=== PATIENT | male | born 1960 | race Caucasian/White ===

== ENCOUNTER 2016-07-22 08:39 | Emergency (ER) | payer OTHER ==
[~2016-07-22] VITALS: Ht 172.7 cm; Wt 87.5 kg
--- NOTE | 2016-07-22 08:52 | ED GI/GU/ABDOMINAL COMPLAINT ---
History of Present Illness General Chief Complaint: Abdominal Pain/Flank Pain Stated Complaint: LOWER LT ABDOMINAL PAIN X 3 DAYS Source: patient Exam Limitations: no limitations Vital Signs & Intake/Output Vital Signs & Intake/Output Vital Signs Date Time Temp Pulse Resp B/P B/P Pulse O2 O2 Flow FiO2 Mean Ox Delivery Rate 07/22 0844 99.0 90 18 168/88 98 Room Air Allergies Coded Allergies: No Known Allergies (07/22/16) Reconcile Medications Alprazolam (Xanax) 0.25 MG TABLET 1 TAB PO BIDP PRN sleep (Reported) Amlodipine Besylate/Benazepril (Amlodipine-Benazepril 5-20 MG) 5 MG-20 MG CAPSULE 1 CAP PO DAILY HEART (Reported) Naproxen 500 MG TABLET 1 TAB PO BID PRN PAIN TAKE WITH FOOD Triage Note: 55 YEAR OLD MALE STATES THAT HE HAS BEEN HAVING L SIDE ABD PAIN, CRAMPING IN NATURE THAT HAS BEEN CONSTANT SINCE FRIDAY , PAIN IS NON RADIATING AND INCREASING IN INTENSITY. DENIES N/V/D AND HAS BEEN HAVING NORMAL BOWEL MOVEMENT AND LAST TIME WENT WAS THIS AM. APPETITE GOOD, DENIES URINARY SYMPTOMS.STATES THAT HIS ABDOMEN IS DISTENDED Triage Nurses Notes Reviewed? yes Onset: Abrupt Duration: day(s): (4) Timing: multiple episodes today Quality/Severity: mild, moderate, sharpness Location: left lower quadrant Radiation: no radiation Activities at Onset: none No Modifying Factors: none Associated Symptoms: ABDOMINAL BLOATING HPI: This is a 55-year-old male presents to the chief complaint of left lower quadrant pain since Friday. Denies any fever or chills but has a low-grade temp 99. Denies any nausea or vomiting. Complains of some abdominal distention. Pain is left flank but does not really. Denies any urinary symptoms. No history of similar symptoms in the past before. Denies any trauma. Past History Travel History Traveled to [place] past 21 day No Medical History Any Pertinent Medical History? see below for history Neurological: NONE EENT: NONE Cardiovascular: hypertension Respiratory: NONE Gastrointestinal: NONE Hepatic: NONE Renal: NONE Musculoskeletal: NONE Psychiatric: anxiety Endocrine: NONE Blood Disorders: NONE Cancer(s): NONE MEDICAL IMAGING DIRECTOR/Reproductive: NONE Surgical History Surgical History: non-contributory Psychosocial History What is your primary language Czech Tobacco Use: Never used ETOH Use: heavy use Illicit Drug Use: denies illicit drug use Family History Hx Contributory? No Review of Systems Review of Systems Constitutional: Denies: chills, fever. EENTM: Reports: no symptoms. Respiratory: Denies: cough, short of breath, sputum production. Cardiovascular: Denies: chest pain, orthopena. GI: Reports: abdominal pain, bloating. Denies: constipation, diarrhea, nausea, vomiting. Genitourinary: Reports: no symptoms. Musculoskeletal: Denies: back pain. Skin: Reports: no symptoms. Neurological/Psychological: Reports: no symptoms. Hematologic/Endocrine: Denies: bruising, bleeding, polyuria, polydipsia. Immunologic/Allergic: Denies: splenectomy. All Other Systems: Reviewed and Negative Physical Exam Physical Exam General Appearance: well developed/nourished, alert, awake, anxious, mild distress Head: atraumatic, normal appearance Eyes: Bilateral: normal appearance, PERRL, EOMI. Ears, Nose, Throat, Mouth: hearing grossly normal, moist mucous membrane Neck: normal inspection, supple, full range of motion Respiratory: normal breath sounds, chest non-tender, no respiratory distress Cardiovascular: regular rate/rhythm Peripheral Pulses: 2+ radial (R), 2+ radial (L) Gastrointestinal: soft, tenderness (LLQ, LEFT FLANK), NO REBOUND OR GUARDING Back: normal inspection, normal range of motion Extremities: normal range of motion Neurologic/Psych: no motor/sensory deficits, awake, alert, oriented x 3 Skin: intact, normal color, warm/dry Core Measures ACS in differential dx? No Severe Sepsis Present: No Septic Shock Present: No Progress Differential Diagnosis: bowel obstruction, diverticulitis, ischemic bowel, inflamm bowel dis, ureterolithiasis, UTI/pyelo Plan of Care: Orders Procedure Date/time Status URINALYSIS 07/22 902 Complete C-REACTIVE PROTEIN 07/22 902 Complete COMPREHENSIVE METABOLIC PANEL 07/22 902 Complete CBC WITHOUT DIFFERENTIAL 07/22 902 Complete Laboratory Tests 07/22/16 0915: Urinalysis LIGHT H, Urine Color YEL, Urine Clarity CLEAR, Urine pH 6.0, Ur Specific [place] 1.025, Urine Protein TRACE H, Urine Ketones NEG, Urine Nitrite NEG, Urine Bilirubin NEG, Urine Urobilinogen 0.2, Ur Leukocyte Esterase NEG, Ur Microscopic SEDIMENT EXAMINED, Urine RBC 1-3, Urine WBC 3-5 H, Ur Epithelial Cells RARE, Urine Bacteria RARE H, Hyaline Casts RARE H, Urine Mucus FEW, Urine Hemoglobin TRACE-LYSED H, Urine Glucose NEG 07/22/16 0911: Anion Gap 12, Estimated GFR > 60, BUN/Creatinine Ratio 18.6, Glucose 110 H, Calcium 9.4, Total Bilirubin 0.7, AST 52, ALT 94 H, Alkaline Phosphatase 48, C- Reactive Prot, Quant 2.4 H, Total Protein 7.5, Albumin 4.5, Globulin 3.0, Albumin/Globulin Ratio 1.5, CBC w Diff NO MAN DIFF REQ, RBC 5.04, MCV 89.8, MCH 31.0, RDW 12.8, MPV 7.8, Gran % 60.1, Lymphocytes % 26.0, Monocytes % 10.7 H, Eosinophils % 2.7, Basophils % 0.5, Absolute Granulocytes 2.9, Absolute Lymphocytes 1.3, Absolute Monocytes 0.5, Absolute Eosinophils 0.1, Absolute Basophils 0, PUBS MCHC 34.5 07/22/2016 11:27:53 AM Imaging results and lab results discussed with the patient. He was encouraged to decrease the amount of alcohol consumption. Naprosyn sent to the pharmacy. He will follow up with GI for future colonoscopy. Patient reports he knows a GI group out of [place] and he may follow up with them. Copy of CT report given to patient. (CHINYERE KNIGHT,GRICELDA) Diagnostic Imaging: Viewed by Me: CT Scan. Discussed w/RAD: CT Scan. Radiology Impression: PATIENT: EDNA DANIELSON PRESENT AGE: 55 PATIENT ACCOUNT NO: [id number] : 56 LOCATION: [facility] [place] ORDERING PHYSICIAN: GRICELDA WHITLOCK MD SERVICE DATE: 07/22/16 EXAM TYPE: CAT - CT ABD & PELVIS W IV CONTRAST EXAMINATION: CT ABDOMEN AND PELVIS WITH CONTRAST CLINICAL INFORMATION: Left lower quadrant pain for 4 days. Evaluate for diverticulitis. COMPARISON: None TECHNIQUE: Multidetector volumetric imaging was performed of the abdomen and pelvis before and after the IV administration of 95 mL of Optiray 320 intravenous contrast. Sagittal and coronal reformatted images were obtained on the technologist's workstation. DLP: 550 mGy-cm FINDINGS: LUNG BASES: The visualized lung bases are unremarkable. LIVER, GALLBLADDER, AND BILIARY TREE: Diffuse hepatic steatosis without focal suspicious lesion or intrahepatic bile duct dilatation. Gallbladder is physiologically distended. Minimal wall thickening of the gallbladder fundus likely represents focal adenomyomatosis. PANCREAS: Unremarkable. SPLEEN: Spleen measures up to 12.7 cm maximum dimension. No focal splenic lesions. ADRENAL GLANDS: Unremarkable. KIDNEYS AND URETERS: Kidneys are normal in size and enhance symmetrically. No nephrolithiasis or hydroureteronephrosis. 0.6 cm cortical cyst at the lower pole of the right kidney. BLADDER: Unremarkable. GASTROINTESTINAL TRACT: Stomach is unremarkable. Loops of bowel are normal in size. There is mild pericolonic stranding around an epiploic appendage of the lateral wall of the descending colon (image 38, series 2). There are colonic diverticula without diverticulitis. The appendix is normal. No ascites or pneumoperitoneum. Mild haziness of the central mesentery consistent with mild mesenteric panniculitis. ABDOMINAL WALL: No acute findings in the abdominal wall. Symmetric appearance of fat-containing inguinal hernias. LYMPH NODES: No pathologic sized lymph nodes in the abdomen or pelvis. VASCULAR: Abdominal aorta is normal in caliber and the celiac trunk, SMA, VIVIEN and renal arteries are widely patent. Inferior vena cava is normal. PELVIC VISCERA: Prostate gland is normal in size. No pelvic free fluid. OSSEOUS STRUCTURES: No acute findings. Bilateral pars interarticularis defects of L5 with 0.3 cm grade 1 anterolisthesis of L5 on S1. IMPRESSION: 1. Epiploic appendagitis of the descending colon (image 38, series 2). 2. Colonic diverticulosis without diverticulitis. 3. Diffuse hepatic steatosis is noted; this can be due to alcoholic and/or nonalcoholic etiologies. 4. Mild mesenteric panniculitis. 5. Fat-containing right and left inguinal hernias. DICTATED BY: SUNSHINE WALKER MD DATE/TIME DICTATED:07/22/161046 FROG SHAKER:LEON DATE/TIME TRANSCRIBED:07/22/161046 CONFIDENTIAL, DO NOT COPY WITHOUT APPROPRIATE AUTHORIZATION. <Electronically signed in Other Vendor System> SIGNED BY: SUNSHINE WALKER MD 07/22/16 1058 Initial ED EKG: none Departure Departure Time of Disposition: 1121 Disposition: HOME OR SELF CARE Condition: Stable Clinical Impression Primary Impression: Infarction of appendices epiploicae Secondary Impressions: Fatty liver, Inguinal hernia Referrals: GARRY KNIGHT,VIKRAM Carlton Additional Instructions: Take the naproxen as directed. Follow up with the GI doctor listed regarding future colonoscopy. Return as needed. Departure Forms: Customer Survey General Discharge Information Prescriptions: Current Visit Scripts Naproxen 1 TAB PO BID PRN PAIN #30 TAB TAKE WITH FOOD
[2016-07-22 09:28] LABS: ABSOLUTE BASOPHIL COUNT 0 /CUMM (0.0-0.2); ABSOLUTE EOSINOPHIL COUNT 0.1 /CUMM (0.0-0.7); ABSOLUTE GRANULOCYTE CT 2.9 /CUMM (1.4-6.5); ABSOLUTE LYMPH COUNT 1.3 /CUMM (1.2-3.4); ABSOLUTE MONOCYTE COUNT 0.5 /CUMM (0.10-0.60); BASOPHIL % 0.5 % (0.0-2.0); EOSINOPHIL % 2.7 % (0-5); GRANULOCYTE % 60.1 % (42.2-75.2); HEMATOCRIT 45.2 % (42-52); MEAN CORPUSCULAR HGB CONC 34.5 G/DL (33.0-37.0); MEAN CORPUSCULAR VOLUME 89.8 FL (80.0-94.0); MEAN PLATELET VOLUME 7.8 FL (7.4-10.4); PLATELET COUNT 194 /CUMM (130-400); RBC DISTRIBUTION WIDTH 12.8 % (11.5-14.5); RED BLOOD CELL CT 5.04 /CUMM (4.70-6.10); WHITE BLOOD CELL COUNT 4.9 /CUMM (4.8-10.8)
[2016-07-22] MEDS ORDERED: AMLODIPINE-BEN1 EAC2 PO (09:29)
[2016-07-22] MEDS ORDERED: XANAX0.25 M1 PO (09:29)
--- NOTE | 2016-07-22 10:58 | CT SCAN REPORT ---
EXAMINATION: CT ABDOMEN AND PELVIS WITH CONTRAST CLINICAL INFORMATION: Left lower quadrant pain for 4 days. Evaluate for diverticulitis. COMPARISON: None TECHNIQUE: Multidetector volumetric imaging was performed of the abdomen and pelvis before and after the IV administration of 95 mL of Optiray 320 intravenous contrast. Sagittal and coronal reformatted images were obtained on the technologist's workstation. DLP: 550 mGy-cm FINDINGS: LUNG BASES: The visualized lung bases are unremarkable. LIVER, GALLBLADDER, AND BILIARY TREE: Diffuse hepatic steatosis without focal suspicious lesion or intrahepatic bile duct dilatation. Gallbladder is physiologically distended. Minimal wall thickening of the gallbladder fundus likely represents focal adenomyomatosis. PANCREAS: Unremarkable. SPLEEN: Spleen measures up to 12.7 cm maximum dimension. No focal splenic lesions. ADRENAL GLANDS: Unremarkable. KIDNEYS AND URETERS: Kidneys are normal in size and enhance symmetrically. No nephrolithiasis or hydroureteronephrosis. 0.6 cm cortical cyst at the lower pole of the right kidney. BLADDER: Unremarkable. GASTROINTESTINAL TRACT: Stomach is unremarkable. Loops of bowel are normal in size. There is mild pericolonic stranding around an epiploic appendage of the lateral wall of the descending colon (image 38, series 2). There are colonic diverticula without diverticulitis. The appendix is normal. No ascites or pneumoperitoneum. Mild haziness of the central mesentery consistent with mild mesenteric panniculitis. ABDOMINAL WALL: No acute findings in the abdominal wall. Symmetric appearance of fat-containing inguinal hernias. LYMPH NODES: No pathologic sized lymph nodes in the abdomen or pelvis. VASCULAR: Abdominal aorta is normal in caliber and the celiac trunk, SMA, VIVIEN and renal arteries are widely patent. Inferior vena cava is normal. PELVIC VISCERA: Prostate gland is normal in size. No pelvic free fluid. OSSEOUS STRUCTURES: No acute findings. Bilateral pars interarticularis defects of L5 with 0.3 cm grade 1 anterolisthesis of L5 on S1. IMPRESSION: 1. Epiploic appendagitis of the descending colon (image 38, series 2). 2. Colonic diverticulosis without diverticulitis. 3. Diffuse hepatic steatosis is noted; this can be due to alcoholic and/or nonalcoholic etiologies. 4. Mild mesenteric panniculitis. 5. Fat-containing right and left inguinal hernias.
[2016-07-22] MEDS ORDERED: NAPROXEN500 M2 PO (11:12)
[2016-07-22 11:38] VITALS: BP 146/88
== END 2016-07-22 11:48 ==
LOC: ERH 08:39
PROVIDERS: Emergency Medicine
DX: K55.069 Acute infarction of intestine, part and extent unspecified (principal); K76.0 Fatty (change of) liver, not elsewhere classified; K40.90 Unilateral inguinal hernia, without obstruction or gangrene, not specified as recurrent
CPT/HCPCS: 74177; 81001